=== PATIENT | female | born 1930 | race Hispanic/Latino ===

== ENCOUNTER 2017-06-24 18:52 | Emergency (ER) | payer MEDICARE ==
[~2017-06-24 18:52] MED LIST: LEVO100T4 PO; LISI-613 PO; METO-391 PO; METO-409 PO; RIVA15TA PO
[2017-06-24 19:14] LABS: BASOPHILS % (AUTO) 0.5 % (0.0-5.0); HEMATOCRIT 38.9 % (36-48); LYMPHOCYTES % (AUTO) 24.7 % (21.0-51.0); MEAN CORPUSCULAR HEMOGLOBIN 30.7 pg (27.0-33.0); MEAN CORPUSCULAR HGB CONC 33.2 g/dL (32.0-36.0); MEAN CORPUSCULAR VOLUME 92.5 fL (79-99); MONOCYTES % (AUTO) 12.2 % (3.0-13.0); NEUTROPHILS % (AUTO) 59.6 % (40.0-77.0); PLATELET COUNT (AUTO) 361 K/uL (130-400); RED BLOOD CELL COUNT(AUTO) 4.21 MIL/uL (4.00-5.50); RED CELL DISTRIBUTION WIDTH 15.1 % (11.0-15.5); WHITE BLOOD COUNT (AUTO) 9.9 K/uL (4.8-10.8)
[2017-06-24 19:25] LABS: CARBON DIOXIDE 28 mmol/L (21-32); CHLORIDE 103 mmol/L (101-111); CREATININE 1.4 mg/dL (0.5-1.5); GLOMERULAR FILTR. RATE CALC 38 mL/min (>60); GLUCOSE,RANDOM 112 mg/dL (70-105); POTASSIUM 3.7 mmol/L (3.5-5.1); SODIUM SERUM 142 mmol/L (136-145); UREA NITROGEN, BLOOD 27 mg/dL (7-18)
[2017-06-24 19:27] LABS: INR 1.28 (0.85-1.15); PARTIAL THROMBOPLASTIN TIME 35.1 SEC (26.3-35.5); PROTHROMBIN TIME 13.4 SEC (9.6-11.6)
[2017-06-24 19:30] LABS: ALANINE AMINOTRANSFERASE 15 U/L (12-78); ALBUMIN 3.7 g/dL (3.5-5.0); ASPARTATE AMINOTRANSFERASE 16 U/L (10-37); BILIRUBIN,TOTAL 0.4 mg/dL (0.2-1.0); TOTAL PROTEIN, SERUM 8.6 g/dL (6.0-8.3)
[2017-06-24 19:33] LABS: ALCOHOL, BLOOD < 3 mg/dL (0-10)
[2017-06-24] MEDS ORDERED: ACETAMINOPHEN 325 MG TAB ONE (20:18)
[2017-06-24 20:43] LABS: APPEARANCE,URINE Cloudy (CLEAR); BILIRUBIN,URINE Negative (NEGATIVE); COLOR,URINE Yellow (YELLOW); GLUCOSE, URINE (UA) Negative (NEGATIVE); KETONES,URINE Negative (NEGATIVE); LEUKOCYTE ESTERASE ,URINE Moderate (NEGATIVE); NITRATE,URINE Positive (NEGATIVE); OCCULT BLOOD,URINE Trace (NEGATIVE); PROTEIN,URINE Trace (NEGATIVE)
[2017-06-24 20:51] LABS: AMPHET/METH SCREEN,URINE NEGATIVE (NEGATIVE); BARBITURATE SCREEN, URINE NEGATIVE (NEGATIVE); BENZODIAZEPINES SCREEN,URINE NEGATIVE (NEGATIVE); CANNABINOID SCREEN,URINE NEGATIVE (NEGATIVE); COCAINE SCREEN,URINE NEGATIVE (NEGATIVE); OPIATE SCREEN,URINE NEGATIVE (NEGATIVE); PHENCYCLIDINE SCREEN,URINE NEGATIVE (NEGATIVE)
[2017-06-24 20:52] LABS: BACTERIA,URINE Moderate /HPF (None Seen); RBC,URINE 0-1 /HPF (0-1)
== END 2017-06-24 23:29 | disposition home or self-care (01) ==
LOC: EDH 18:52
DX: S02.2XXA Fracture of nasal bones, initial encounter for closed fracture (principal); S01.511A Laceration without foreign body of lip, initial encounter; S01.512A Laceration without foreign body of oral cavity, initial encounter; S80.02XA Contusion of left knee, initial encounter; I10 Essential (primary) hypertension; I48.91 Unspecified atrial fibrillation; W01.0XXA Fall on same level from slipping, tripping and stumbling without subsequent striking against object, initial encounter; Y93.89 Activity, other specified; Y92.89 Other specified places as the place of occurrence of the external cause; Y99.8 Other external cause status
CPT/HCPCS: 36415; 70450; 70486; 72125; 73110; 73560; 80053; 80305; 81001; 85025; 85610; 85730; 93005; 94761; 99285; G0480; 96372

== ENCOUNTER 2017-07-04 09:38 | Emergency (ER) | payer MEDICARE ==
[2017-07-04] MEDS ORDERED: LIDOCAINE HCL-MPF 1% 2ML VIAL ONE (10:30)
[2017-07-04] MEDS ORDERED: CEFTRIAXONE SODIUM 1 GM ONE (10:30)
== END 2017-07-04 11:45 | disposition home or self-care (01) ==
LOC: EDH 09:38
DX: R60.0 Localized edema (principal)
CPT/HCPCS: 73130; 96372; 99284; J0696; J3490

== ENCOUNTER → 2018-03-16 | Outpatient (CLI) | payer MEDICARE, OTHER | END | disposition home or self-care (01) | LOC: OIH 12:45 | PROVIDERS: ATTEND Internal Medicine | DX: I11.9 Hypertensive heart disease without heart failure (principal) | CPT/HCPCS: 71046 ==

== ENCOUNTER → 2018-04-15 | Outpatient (CLI) | payer MEDICARE, OTHER | END | disposition home or self-care (01) | LOC: OIH 16:30 | PROVIDERS: ATTEND Internal Medicine | DX: R91.8 Other nonspecific abnormal finding of lung field (principal); I11.0 Hypertensive heart disease with heart failure; I50.31 Acute diastolic (congestive) heart failure; M47.815 Spondylosis without myelopathy or radiculopathy, thoracolumbar region | CPT/HCPCS: 71046 ==

== ENCOUNTER 2018-05-18 18:50 | Emergency (ER) | payer MEDICARE ==
[2018-05-18 20:21] LABS: BASOPHILS % (AUTO) 0.9 % (0.0-5.0); EOSINOPHILS % (AUTO) 2.9 % (0.0-8.0); HEMATOCRIT 37.9 % (36-48); LYMPHOCYTES % (AUTO) 27.4 % (21.0-51.0); MEAN CORPUSCULAR HEMOGLOBIN 31.5 pg (27.0-33.0); MEAN CORPUSCULAR HGB CONC 32.8 g/dL (32.0-36.0); MONOCYTES % (AUTO) 15.8 % (3.0-13.0); NUCLEATED RED BLOOD CELLS 0.1 % (0.0-0.19); PLATELET COUNT (AUTO) 295 K/uL (130-400); RED BLOOD CELL COUNT(AUTO) 3.94 MIL/uL (4.00-5.50); RED CELL DISTRIBUTION WIDTH 14.9 % (11.0-15.5); WHITE BLOOD COUNT (AUTO) 5.9 K/uL (4.8-10.8)
[2018-05-18 20:35] LABS: CREATININE 1.1 mg/dL (0.5-1.5); POTASSIUM 3.7 mmol/L (3.5-5.1)
[2018-05-18 20:37] LABS: INR 1.1 (0.85-1.15); PARTIAL THROMBOPLASTIN TIME 32.3 SEC (26.3-35.5); PROTHROMBIN TIME 11.5 SEC (9.6-11.6)
[2018-05-18 20:39] LABS: ALBUMIN 3.5 g/dL (3.5-5.0); BILIRUBIN,TOTAL 0.4 mg/dL (0.2-1.0); TOTAL PROTEIN, SERUM 7.9 g/dL (6.0-8.3)
[2018-05-18] MEDS ORDERED: IBUPROFEN 400 MG TABLET ONE (21:25)
== END 2018-05-18 22:05 | disposition home or self-care (01) ==
LOC: EDH 18:50
DX: R51 Headache (principal); I48.91 Unspecified atrial fibrillation; I10 Essential (primary) hypertension; E07.9 Disorder of thyroid, unspecified; Z79.899 Other long term (current) drug therapy
CPT/HCPCS: 36415; 70450; 80053; 85025; 85610; 85730; 93005

== ENCOUNTER → 2018-06-29 | Outpatient (CLI) | payer MEDICARE | END | disposition home or self-care (01) | LOC: SHCH 15:21 | PROVIDERS: ATTEND Internal Medicine Cardiovascular Disease | DX: I11.0 Hypertensive heart disease with heart failure (principal); I50.32 Chronic diastolic (congestive) heart failure; I48.0 Paroxysmal atrial fibrillation; I48.92 Unspecified atrial flutter; I34.0 Nonrheumatic mitral (valve) insufficiency | CPT/HCPCS: 93306 ==

== ENCOUNTER 2018-07-28 06:13 | Emergency (ER) | payer MEDICARE ==
[2018-07-28 08:10] LABS: BASOPHILS % (AUTO) 0.9 % (0.0-5.0); EOSINOPHILS % (AUTO) 1.1 % (0.0-8.0); HEMATOCRIT 37.6 % (36-48); LYMPHOCYTES % (AUTO) 9.5 % (21.0-51.0); MEAN CORPUSCULAR HEMOGLOBIN 31.7 pg (27.0-33.0); MEAN CORPUSCULAR HGB CONC 33.2 g/dL (32.0-36.0); MEAN CORPUSCULAR VOLUME 95.4 fL (79-99); MONOCYTES % (AUTO) 8.3 % (3.0-13.0); NEUTROPHILS % (AUTO) 80.2 % (40.0-77.0); PLATELET COUNT (AUTO) 319 K/uL (130-400); RED BLOOD CELL COUNT(AUTO) 3.95 MIL/uL (4.00-5.50); RED CELL DISTRIBUTION WIDTH 15.6 % (11.0-15.5); WHITE BLOOD COUNT (AUTO) 9.2 K/uL (4.8-10.8)
[2018-07-28 08:20] LABS: POTASSIUM 3.3 mmol/L (3.5-5.1)
[2018-07-28 08:28] LABS: ALBUMIN 3.7 g/dL (3.5-5.0); BILIRUBIN,TOTAL 0.8 mg/dL (0.2-1.0); TOTAL PROTEIN, SERUM 8.7 g/dL (6.0-8.3)
== END 2018-07-28 09:59 | disposition home or self-care (01) ==
LOC: EDH 06:13
DX: R51 Headache (principal); I48.91 Unspecified atrial fibrillation; I10 Essential (primary) hypertension; E07.9 Disorder of thyroid, unspecified; G51.0 Bell's palsy; Z79.899 Other long term (current) drug therapy
CPT/HCPCS: 36415; 70450; 80053; 85025

== ENCOUNTER 2018-08-07 04:39 | Emergency (ER) | payer MEDICARE ==
[2018-08-07 05:25] LABS: BASOPHILS % (AUTO) 0.5 % (0.0-5.0); EOSINOPHILS % (AUTO) 2.4 % (0.0-8.0); HEMATOCRIT 38.8 % (36-48); LYMPHOCYTES % (AUTO) 10.1 % (21.0-51.0); MEAN CORPUSCULAR HGB CONC 33.5 g/dL (32.0-36.0); MEAN CORPUSCULAR VOLUME 95.7 fL (79-99); MONOCYTES % (AUTO) 9.1 % (3.0-13.0); NEUTROPHILS % (AUTO) 77.9 % (40.0-77.0); PLATELET COUNT (AUTO) 308 K/uL (130-400); RED BLOOD CELL COUNT(AUTO) 4.05 MIL/uL (4.00-5.50); RED CELL DISTRIBUTION WIDTH 15.8 % (11.0-15.5); WHITE BLOOD COUNT (AUTO) 11.4 K/uL (4.8-10.8)
[2018-08-07] MEDS ORDERED: FUROSEMIDE 10 MG/ML 4ML VIAL ONE (05:33)
[2018-08-07 05:42] LABS: B-TYPE NATRIURETIC PEPTIDE 769 pg/mL (0-100)
[2018-08-07 05:46] LABS: POTASSIUM 3.3 mmol/L (3.5-5.1)
[2018-08-07 05:50] LABS: ALBUMIN 3.8 g/dL (3.5-5.0); BILIRUBIN,TOTAL 0.7 mg/dL (0.2-1.0); TOTAL PROTEIN, SERUM 8.5 g/dL (6.0-8.3)
[2018-08-07] MEDS ORDERED: POTASSIUM CHLORIDE 20 MEQ ERTAB PO ONE (06:13)
[2018-08-07 07:10] LABS: APPEARANCE,URINE Clear (CLEAR); BILIRUBIN,URINE Negative (NEGATIVE); COLOR,URINE Yellow (YELLOW); GLUCOSE, URINE (UA) Negative (NEGATIVE); KETONES,URINE Negative (NEGATIVE); LEUKOCYTE ESTERASE ,URINE Large (NEGATIVE); NITRATE,URINE Positive (NEGATIVE); OCCULT BLOOD,URINE Moderate (NEGATIVE); PH,URINE 7.5 (5.0-8.0); PROTEIN,URINE Negative (NEGATIVE)
[2018-08-07 07:56] LABS: BACTERIA,URINE Many /HPF (None Seen); SQUAMOUS EPITHELIAL CELL,UR Few /HPF (0-2); WBC,URINE 26-50 /HPF (0-1)
== END 2018-08-07 08:06 | disposition home or self-care (01) ==
LOC: EDH 04:39
DX: I11.0 Hypertensive heart disease with heart failure (principal); I50.23 Acute on chronic systolic (congestive) heart failure; E87.6 Hypokalemia; R06.00 Dyspnea, unspecified; I48.91 Unspecified atrial fibrillation; G51.0 Bell's palsy; Z79.899 Other long term (current) drug therapy
CPT/HCPCS: 36415; 71046; 80053; 81001; 82550; 83735; 83880; 84484 ×2; 85025; 87077; 87088; 87186; 93005 ×2; 96374; 99285; J1940

== ENCOUNTER 2018-08-24 06:21 | Emergency (ER) | payer MEDICARE ==
[2018-08-24] MEDS ORDERED: HYDROCODONE/ACETAMINOPHEN 10/325 MG TAB ONE (07:36)
[2018-08-24 07:57] LABS: BASOPHILS % (AUTO) 0.7 % (0.0-5.0); EOSINOPHILS % (AUTO) 2.6 % (0.0-8.0); HEMATOCRIT 37.5 % (36-48); LYMPHOCYTES % (AUTO) 8.5 % (21.0-51.0); MEAN CORPUSCULAR HEMOGLOBIN 32.6 pg (27.0-33.0); MEAN CORPUSCULAR VOLUME 95.9 fL (79-99); MONOCYTES % (AUTO) 9.9 % (3.0-13.0); NEUTROPHILS % (AUTO) 78.3 % (40.0-77.0); PLATELET COUNT (AUTO) 321 K/uL (130-400); RED BLOOD CELL COUNT(AUTO) 3.91 MIL/uL (4.00-5.50); RED CELL DISTRIBUTION WIDTH 15.4 % (11.0-15.5); WHITE BLOOD COUNT (AUTO) 8.6 K/uL (4.8-10.8)
[2018-08-24 08:02] LABS: CREATININE 1.1 mg/dL (0.5-1.5); CRP QUANTITATIVE 35.6 mg/L (0.00-9.0); POTASSIUM 3.4 mmol/L (3.5-5.1)
== END 2018-08-24 09:20 | disposition home or self-care (01) ==
LOC: EDH 06:21
DX: R21 Rash and other nonspecific skin eruption (principal); I48.91 Unspecified atrial fibrillation; I10 Essential (primary) hypertension; E07.9 Disorder of thyroid, unspecified
CPT/HCPCS: 36415; 80048; 85025; 86140

== ENCOUNTER 2019-03-27 05:52 | Observation (INO) | payer MEDICARE ==
[~2019-03-27] VITALS: Ht 160 cm; Wt 81.1 kg
[2019-03-27] MEDS ORDERED: CEFTRIAXONE SODIUM 1 GM ONE (06:08)
[2019-03-27] MEDS ORDERED: SODIUM CHLORIDE 0.9% 1000ML 2,000 ML IV ONE (06:08)
[2019-03-27] MEDS ORDERED: ACETAMINOPHEN 325 MG TAB ONE (06:08)
[2019-03-27 06:50] LABS: BASOPHILS % (AUTO) 1.1 % (0.0-5.0); EOSINOPHILS % (AUTO) 0.2 % (0.0-8.0); HEMATOCRIT 38.2 % (36-48); LYMPHOCYTES % (AUTO) 3.5 % (21.0-51.0); MEAN CORPUSCULAR HEMOGLOBIN 32.9 pg (27.0-33.0); MEAN CORPUSCULAR HGB CONC 33.7 g/dL (32.0-36.0); MEAN CORPUSCULAR VOLUME 97.5 fL (79-99); NEUTROPHILS % (AUTO) 82.2 % (40.0-77.0); PLATELET COUNT (AUTO) 234 K/uL (130-400); RED BLOOD CELL COUNT(AUTO) 3.92 MIL/uL (4.00-5.50); RED CELL DISTRIBUTION WIDTH 14.5 % (11.0-15.5); WHITE BLOOD COUNT (AUTO) 9.4 K/uL (4.8-10.8)
[2019-03-27 06:56] LABS: APPEARANCE,URINE CLOUDY (CLEAR); BILIRUBIN,URINE SMALL (NEGATIVE); COLOR,URINE YELLOW (YELLOW); GLUCOSE, URINE (UA) NEGATIVE (NEGATIVE); KETONES,URINE NEGATIVE (NEGATIVE); LEUKOCYTE ESTERASE ,URINE MODERATE (NEGATIVE); NITRATE,URINE NEGATIVE (NEGATIVE); OCCULT BLOOD,URINE MODERATE (NEGATIVE); PROTEIN,URINE 100 mg/dL (NEGATIVE)
[2019-03-27 07:07] LABS: INR 1.12 (0.85-1.15); PARTIAL THROMBOPLASTIN TIME 30.3 SEC (26.3-35.5); PROTHROMBIN TIME 11.7 SEC (9.6-11.6)
[2019-03-27 07:16] LABS: CREATININE 1.2 mg/dL (0.5-1.5); POTASSIUM 3.7 mmol/L (3.5-5.1)
[2019-03-27 07:22] LABS: ALBUMIN 3.2 g/dL (3.5-5.0); TOTAL PROTEIN, SERUM 7.7 g/dL (6.0-8.3)
[2019-03-27 07:36] LABS: BACTERIA,URINE Many /HPF (None Seen); SQUAMOUS EPITHELIAL CELL,UR Rare /HPF (0-2); WBC,URINE 51-100 /HPF (0-1)
[2019-03-27] MEDS: CEFTRIAXONE SODIUM 1 GM IVP SCH (09:00)
[2019-03-27] MEDS ORDERED: LEVOFLOXACIN 750 MG/D5W 150 ML 150 ML IV SCH (09:00)
[2019-03-27 09:20] VITALS: BP 154/77
[2019-03-27] MEDS ORDERED: SODIUM CHLORIDE 0.9% 10 ML VIAL IVP PRN (09:45)
[2019-03-27] MEDS ORDERED: DILTIAZEM HCL 60 MG TABLET PO SCH (09:45)
[2019-03-27] MEDS ORDERED: DILT180C51 PO (10:57)
[2019-03-27] MEDS ORDERED: LISI-613 PO (10:57)
[2019-03-27] MEDS ORDERED: METO100T14 PO (10:57)
[2019-03-27 11:57] VITALS: BP 160/70
[2019-03-27] MEDS: 1/2 NORMAL SALINE 1,000 ML IV SCH ×2 (12:17→17:03)
[2019-03-27] MEDS: LEVOFLOXACIN 750 MG/D5W 150 ML 150 ML IV SCH (12:17)
[2019-03-27 16:00] VITALS: BP 162/73
[2019-03-27 20:00] VITALS: BP 152/83
[2019-03-27] MEDS: LISINOPRIL 20 MG TABLET PO SCH (20:15)
[2019-03-27] MEDS: METOPROLOL TARTRATE 50 MG TAB PO SCH (20:17)
[2019-03-27] MEDS: DILTIAZEM HCL 60 MG TABLET PO SCH (20:19)
[2019-03-28] VITALS (7 sets, daily range): BP systolic 138–157; BP diastolic 62–88
[2019-03-28 05:45] LABS: HEMATOCRIT 37.3 % (36-48); MEAN CORPUSCULAR HEMOGLOBIN 32.3 pg (27.0-33.0); MEAN CORPUSCULAR HGB CONC 33.6 g/dL (32.0-36.0); MEAN CORPUSCULAR VOLUME 96.1 fL (79-99); PLATELET COUNT (AUTO) 236 K/uL (130-400); RED BLOOD CELL COUNT(AUTO) 3.89 MIL/uL (4.00-5.50); RED CELL DISTRIBUTION WIDTH 14.4 % (11.0-15.5); WHITE BLOOD COUNT (AUTO) 8.9 K/uL (4.8-10.8)
[2019-03-28 06:02] LABS: POTASSIUM 2.9 mmol/L (3.5-5.1)
--- NOTE | 2019-03-28 06:10 | NUR ---
MD ROUNDS DR. PLEITEZ HERE, WENT IN TO SEE PATIENT. NOTIFIED OF TEMPERATURES DURING [employer] AND SHOWED HIM LAB REPORTS FOR THIS MORNING. PATIENT IS TO STAY ONE MORE DAY DUE FEVERS AND WILL BE STARTED ON POTASSIUM REPLACEMENT PROTOCOL. TYLENOL FOR FEVER OR PAINS.
[2019-03-28] MEDS ORDERED: ACETAMINOPHEN 325 MG TAB PO PRN ×2 (06:15)
[2019-03-28] MEDS ORDERED: LIDOCAINE HCL-MPF 1% 2ML VIAL IV PRN (06:15)
[2019-03-28] MEDS ORDERED: POTASSIUM CHLORIDE 20 MEQ ERTAB PO PRN (06:15)
--- NOTE | 2019-03-28 06:29 | NUR ---
NOTE PATIENT'S DAUGHTER HERE. UPDATED HER ON STATUS AND ON PLAN UPDATES.
[2019-03-28] MEDS: LEVOTHYROXINE 100 MCG TABLET PO SCH (06:44)
[2019-03-28] MEDS: DILTIAZEM HCL 180 MG CAP.SR.24H PO SCH (09:00)
[2019-03-28] MEDS: CEFTRIAXONE SODIUM 1 GM IVP SCH (10:18)
[2019-03-28] MEDS: METOPROLOL TARTRATE 50 MG TAB PO SCH ×2 (10:19→21:42)
[2019-03-28] MEDS: RIVAROXABAN 15 MG TABLET PO SCH (10:20)
[2019-03-28] MEDS: DILTIAZEM HCL 60 MG TABLET PO SCH ×2 (10:20→21:42)
[2019-03-28] MEDS: LISINOPRIL 20 MG TABLET PO SCH ×2 (10:20→21:43)
--- NOTE | 2019-03-28 11:40 | NUR ---
DCP CM met with pt discussed dc plans. Pt is independent prior to admission, lives at home with daughter. Denies any equipments/services. Feels safe to go back home, daughter able to assist with transportation and needs as necessary. DC plan to home once stable. CM to con to follow up. Addendum: 03/28/19 at 1141 by JUNIOR ZHANG LVN CM Amended: Links added.
--- NOTE | 2019-03-28 11:42 | NUR ---
CM Note: Called Dr Salazar CM called Dr Salazar left voicemail. Pt met IPMM criteria re: UTI, K2,9. Pending MD to call back. CM to cont to follow up.
[2019-03-28] MEDS: POTASSIUM CHLORIDE 20MEQ/100ML 100 ML IV PRN ×2 (18:04→19:26)
[2019-03-28] MEDS ORDERED: MAGNESIUM 2GM PREMIX 50ML 50 ML IV PRN (18:30)
--- NOTE | 2019-03-28 19:06 | NUR ---
OKAY TO CHECK MAG AND K AND MAG PROTOCOL.
[2019-03-28 20:53] LABS: MAGNESIUM 1.6 mg/dL (1.80-2.40)
[2019-03-28 20:58] LABS: POTASSIUM 2.9 mmol/L (3.5-5.1)
[2019-03-29 03:00] VITALS: BP 120/63
[2019-03-29 06:19] LABS: MAGNESIUM 2.4 mg/dL (1.80-2.40); POTASSIUM 3.2 mmol/L (3.5-5.1)
[2019-03-29] MEDS: LEVOTHYROXINE 100 MCG TABLET PO SCH (07:53)
[2019-03-29] MEDS: POTASSIUM CHLORIDE 20MEQ/100ML 100 ML IV PRN (07:54)
[2019-03-29 07:57] VITALS: BP 138/51
[2019-03-29] MEDS: CEFTRIAXONE SODIUM 1 GM IVP SCH (08:05)
[2019-03-29] MEDS: DILTIAZEM HCL 60 MG TABLET PO SCH (08:06)
[2019-03-29] MEDS: RIVAROXABAN 15 MG TABLET PO SCH (08:07)
[2019-03-29] MEDS: LISINOPRIL 20 MG TABLET PO SCH (08:07)
[2019-03-29] MEDS: METOPROLOL TARTRATE 50 MG TAB PO SCH (08:07)
[2019-03-29] MEDS: DILTIAZEM HCL 180 MG CAP.SR.24H PO SCH (09:00)
[2019-03-29 11:07] VITALS: BP 103/49
[2019-03-29] MEDS: POTASSIUM CHLORIDE 10% ELIXIR 20 MEQ/15 ML UDCUP PO PRN ×2 (12:38→15:57)
[2019-03-29] MEDS: LEVOFLOXACIN 750 MG/D5W 150 ML 150 ML IV SCH (15:19)
[2019-03-29 16:14] VITALS: BP 130/67
--- NOTE | 2019-03-29 18:00 | NUR ---
DISCHARGE SUMMARY REVIEW WITH PT REGARDING COMPLETION OF ANTIBOTICS . AND FOLLOW WITH . DR. PLEITEZ IN 2-3 DAYS
== END 2019-03-29 18:00 | disposition home or self-care (01) ==
LOC: EDH 05:52 → EDHIP 07:45 → 3BH 09:00
PROVIDERS: ADMIT Internal Medicine; ATTEND Internal Medicine
DX: N10 Acute pyelonephritis (principal); N39.0 Urinary tract infection, site not specified; I48.91 Unspecified atrial fibrillation; I12.9 Hypertensive chronic kidney disease with stage 1 through stage 4 chronic kidney disease, or unspecified chronic kidney disease; E11.22 Type 2 diabetes mellitus with diabetic chronic kidney disease; N18.3 Chronic kidney disease, stage 3 (moderate); G51.0 Bell's palsy; Z79.01 Long term (current) use of anticoagulants; Z79.899 Other long term (current) drug therapy
CPT/HCPCS: 36415 ×3; 71045; 80048; 80053; 81001; 82948 ×10; 83605; 83735 ×2; 83880; 84132 ×3; 84145; 85025; 85027; 85610; 85730; 87040 ×2; 87077; 87088; 87186; 87804 ×2; 93005; 96365; 96366 ×2; 96367; 96375 ×2; 96376; 99291; G0378 ×56; J0696 ×3; J1956 ×3; J3475; J3480 ×2; J3490 ×2; J7030

== ENCOUNTER 2020-02-17 00:43 | Emergency (ER) | payer MEDICARE ==
[~2020-02-17 00:43] MED LIST changes: +DILT180C51 PO; -METO-391 PO; -METO-409 PO; +METO100T14 PO
[2020-02-17 01:19] LABS: BASOPHILS % (AUTO) 0.2 % (0.0-5.0); EOSINOPHILS % (AUTO) 0.9 % (0.0-8.0); HEMATOCRIT 39.2 % (36-48); LYMPHOCYTES % (AUTO) 8.2 % (21.0-51.0); MEAN CORPUSCULAR HEMOGLOBIN 31.7 pg (27.0-33.0); MEAN CORPUSCULAR HGB CONC 32.1 g/dL (32.0-36.0); MEAN CORPUSCULAR VOLUME 98.5 fL (79-99); MONOCYTES % (AUTO) 8.3 % (3.0-13.0); NEUTROPHILS % (AUTO) 82.1 % (40.0-77.0); PLATELET COUNT (AUTO) 335 K/uL (130-400); RED BLOOD CELL COUNT(AUTO) 3.98 MIL/uL (4.00-5.50); RED CELL DISTRIBUTION WIDTH 14.7 % (11.0-15.5); WHITE BLOOD COUNT (AUTO) 13.3 K/uL (4.8-10.8)
[2020-02-17 01:37] LABS: ALBUMIN 3.6 g/dL (3.5-5.0); BILIRUBIN,TOTAL 0.8 mg/dL (0.2-1.0); CREATININE 1.5 mg/dL (0.5-1.5); POTASSIUM 4.5 mmol/L (3.5-5.1); TOTAL PROTEIN, SERUM 9.6 g/dL (6.0-8.3)
[2020-02-17 01:50] LABS: B-TYPE NATRIURETIC PEPTIDE 2070 pg/mL (0-100)
[2020-02-17] MEDS ORDERED: LORAZEPAM 0.5 MG TABLET ONE (02:47)
== END 2020-02-17 03:07 | disposition home or self-care (01) ==
LOC: EDH 00:43
DX: G47.00 Insomnia, unspecified (principal); I48.20 Chronic atrial fibrillation, unspecified; I11.0 Hypertensive heart disease with heart failure; I50.9 Heart failure, unspecified; Z79.899 Other long term (current) drug therapy
CPT/HCPCS: 36415; 71045; 80053; 83880; 84484; 85025; 93005

== ENCOUNTER 2020-02-24 00:53 | Observation (INO) | payer MEDICARE ==
[~2020-02-24] VITALS: Ht 160 cm; Wt 74.0 kg
[2020-02-24] MEDS ORDERED: FUROSEMIDE 10 MG/ML 4ML VIAL ONE ×2 (01:25→10:09)
[2020-02-24] MEDS ORDERED: NITROGLYCERIN 1GM/1 INCH PACKET TD ONE (01:25)
[2020-02-24 01:27] LABS: BASOPHILS % (AUTO) 0.2 % (0.0-5.0); EOSINOPHILS % (AUTO) 2.2 % (0.0-8.0); HEMATOCRIT 39.2 % (36-48); LYMPHOCYTES % (AUTO) 13.3 % (21.0-51.0); MEAN CORPUSCULAR HEMOGLOBIN 31.8 pg (27.0-33.0); MEAN CORPUSCULAR HGB CONC 32.7 g/dL (32.0-36.0); MEAN CORPUSCULAR VOLUME 97.5 fL (79-99); MONOCYTES % (AUTO) 8.6 % (3.0-13.0); NEUTROPHILS % (AUTO) 75.2 % (40.0-77.0); PLATELET COUNT (AUTO) 348 K/uL (130-400); RED BLOOD CELL COUNT(AUTO) 4.02 MIL/uL (4.00-5.50); RED CELL DISTRIBUTION WIDTH 15.4 % (11.0-15.5); WHITE BLOOD COUNT (AUTO) 10.2 K/uL (4.8-10.8)
[2020-02-24 01:37] LABS: CREATININE 1.4 mg/dL (0.5-1.5); POTASSIUM 3.5 mmol/L (3.5-5.1)
[2020-02-24 01:41] LABS: ALBUMIN 3.5 g/dL (3.5-5.0); BILIRUBIN,TOTAL 0.9 mg/dL (0.2-1.0); TOTAL PROTEIN, SERUM 8.2 g/dL (6.0-8.3)
[2020-02-24 01:53] LABS: B-TYPE NATRIURETIC PEPTIDE 1740 pg/mL (0-100)
[2020-02-24 02:15] LABS: INR 1.22 (0.85-1.15); PARTIAL THROMBOPLASTIN TIME 32.3 SEC (26.3-35.5); PROTHROMBIN TIME 13.1 SEC (9.6-11.6)
[2020-02-24] MEDS ORDERED: METOPROLOL TARTRATE 50 MG TAB ONE (10:08)
[2020-02-24] MEDS ORDERED: LEVOTHYROXINE 100 MCG TABLET ONE (10:08)
[2020-02-24] MEDS: METOPROLOL TARTRATE 50 MG TAB PO SCH ×2 (10:13→21:00)
[2020-02-24] MEDS ORDERED: LISINOPRIL 20 MG TABLET PO SCH (10:16)
[2020-02-24] MEDS: DILTIAZEM HCL 180 MG CAP.SR.24H PO SCH (10:16)
[2020-02-24] MEDS: LEVOTHYROXINE 100 MCG TABLET PO SCH (10:16)
[2020-02-24] MEDS: RIVAROXABAN 15 MG TABLET PO SCH (10:16)
[2020-02-24] MEDS ORDERED: LISINOPRIL 40 MG TABLET PO SCH (10:27)
[2020-02-24] MEDS: FUROSEMIDE 10 MG/ML 4ML VIAL IVP SCH ×2 (14:00→22:39)
[2020-02-24 15:45] VITALS: BP 144/70
[2020-02-24 20:12] VITALS: BP 132/70
[2020-02-24] MEDS ORDERED: NON-FORMULARY MEDICATION 1 EACH (Metoprolol Tartrate 100 MG) PO SCH (21:00)
[2020-02-24] MEDS: LISINOPRIL 20 MG TABLET PO SCH (22:38)
[2020-02-25] VITALS (7 sets, daily range): BP systolic 134–162; BP diastolic 49–82
[2020-02-25] MEDS: FUROSEMIDE 10 MG/ML 4ML VIAL IVP SCH ×3 (05:26→20:34)
[2020-02-25] MEDS: LEVOTHYROXINE 100 MCG TABLET PO SCH (05:27)
[2020-02-25 06:01] LABS: BASOPHILS % (AUTO) 0.4 % (0.0-5.0); EOSINOPHILS % (AUTO) 3.7 % (0.0-8.0); HEMATOCRIT 35.5 % (36-48); LYMPHOCYTES % (AUTO) 15.4 % (21.0-51.0); MEAN CORPUSCULAR HEMOGLOBIN 31.2 pg (27.0-33.0); MEAN CORPUSCULAR HGB CONC 32.7 g/dL (32.0-36.0); MEAN CORPUSCULAR VOLUME 95.4 fL (79-99); MONOCYTES % (AUTO) 12.4 % (3.0-13.0); NEUTROPHILS % (AUTO) 67.7 % (40.0-77.0); PLATELET COUNT (AUTO) 312 K/uL (130-400); RED BLOOD CELL COUNT(AUTO) 3.72 MIL/uL (4.00-5.50); RED CELL DISTRIBUTION WIDTH 15.1 % (11.0-15.5); WHITE BLOOD COUNT (AUTO) 7.8 K/uL (4.8-10.8)
[2020-02-25 06:15] LABS: CREATININE 1.2 mg/dL (0.5-1.5)
[2020-02-25 06:24] LABS: POTASSIUM 2.8 mmol/L (3.5-5.1)
[2020-02-25] MEDS ORDERED: LEVOTHYROXINE 100 MCG TABLET PO SCH (06:30)
--- NOTE | 2020-02-25 06:34 | NUR ---
CRITICAL LAB VALUE POTASSIUM 2.8. PAGED DR. GONZALEZ PER ORTHOPEDIC NURSE LOG SHEET. NO ANSWER. PENDING CALL BACK.
--- NOTE | 2020-02-25 06:49 | NUR ---
MANAGER COSTING PAGED [phone] CALLED AND PAGED CARLOS TO REPORT K+ LEVEL. PENDING CALL BACK.
--- NOTE | 2020-02-25 08:31 | NUR ---
Per election clerk sheet, Dr. Clay election clerk. Message sent to report critical result of 2.8, no replacement protocol ordered. Rec'd orders for potassium 40 meq po x 1 now, repeat in 4 hours, then 20 daily x 3 days. Orders entered.
[2020-02-25] MEDS ORDERED: POTASSIUM CHLORIDE 20 MEQ ERTAB PO SCH (08:45)
[2020-02-25] MEDS ORDERED: RIVAROXABAN 15 MG TABLET PO SCH (09:00)
[2020-02-25] MEDS ORDERED: DILTIAZEM HCL 180 MG CAP.SR.24H PO SCH (09:00)
[2020-02-25] MEDS ORDERED: LISINOPRIL 20 MG TABLET PO SCH (09:00)
[2020-02-25] MEDS: DILTIAZEM HCL 180 MG CAP.SR.24H PO SCH (09:33)
[2020-02-25] MEDS: LISINOPRIL 20 MG TABLET PO SCH ×2 (09:33→20:28)
[2020-02-25] MEDS: RIVAROXABAN 15 MG TABLET PO SCH (09:33)
[2020-02-25] MEDS: METOPROLOL TARTRATE 50 MG TAB PO SCH ×2 (09:33→20:29)
[2020-02-25] MEDS ORDERED: POTASSIUM CHLORIDE 20 MEQ ERTAB PO ONE (13:00)
--- NOTE | 2020-02-25 17:04 | NUR ---
[facility] CM met with pt and daughter in room discussed dc plans. Pt is independent prior to admission, daughter stays with patient 10/11 at home. Pt has a walker, shower chair, oxygen equipments. Denies any other equipments/services. Feels safe to go back home, still drives, daughter able to assist with transportation and needs as necessary. Pt declined placement at this time, prefer to go back home as pt verbalized her daughter stays with her at all times. DC plan to home once stable. CM to continue to follow up. Addendum: 02/25/20 at 1706 by JUNIOR ZHANG LVN CM Amended: Links added.
[2020-02-26 04:00] VITALS: BP 144/47
[2020-02-26 05:47] LABS: HEMATOCRIT 38.4 % (36-48); MEAN CORPUSCULAR HEMOGLOBIN 31.5 pg (27.0-33.0); MEAN CORPUSCULAR HGB CONC 33.1 g/dL (32.0-36.0); MEAN CORPUSCULAR VOLUME 95.3 fL (79-99); RED BLOOD CELL COUNT(AUTO) 4.03 MIL/uL (4.00-5.50); RED CELL DISTRIBUTION WIDTH 15.2 % (11.0-15.5); WHITE BLOOD COUNT (AUTO) 10.7 K/uL (4.8-10.8)
[2020-02-26] MEDS: FUROSEMIDE 10 MG/ML 4ML VIAL IVP SCH (05:58)
[2020-02-26] MEDS: LEVOTHYROXINE 100 MCG TABLET PO SCH (05:58)
[2020-02-26 06:02] LABS: CREATININE 1.3 mg/dL (0.5-1.5)
[2020-02-26 06:32] LABS: POTASSIUM 2.7 mmol/L (3.5-5.1)
[2020-02-26 08:00] VITALS: BP 154/55
[2020-02-26] MEDS: DILTIAZEM HCL 180 MG CAP.SR.24H PO SCH (08:42)
[2020-02-26] MEDS: RIVAROXABAN 15 MG TABLET PO SCH (08:42)
[2020-02-26] MEDS: LISINOPRIL 20 MG TABLET PO SCH ×2 (08:42→20:35)
[2020-02-26] MEDS: METOPROLOL TARTRATE 50 MG TAB PO SCH ×2 (08:42→20:35)
[2020-02-26] MEDS ORDERED: POTASSIUM CHLORIDE 20 MEQ ERTAB PO SCH ×2 (09:00→15:30)
[2020-02-26 11:00] VITALS: BP 157/62
[2020-02-26] MEDS: MAGNESIUM OXIDE 400 MG TABLET PO SCH ×2 (12:15→20:34)
--- NOTE | 2020-02-26 13:20 | NUR ---
CM NOTE CM attempted to contact Dr. Clay in regards to order clarification. Pending response.
[2020-02-26] MEDS ORDERED: ISOSORBIDE MONO 30MG TAB SR PO SCH (15:30)
[2020-02-26] MEDS ORDERED: SPIRONOLACTONE 25 MG TAB PO SCH (15:30)
[2020-02-26 16:00] VITALS: BP 162/76
[2020-02-26] MEDS ORDERED: POTASSIUM CHLORIDE 10% ELIXIR 20 MEQ/15 ML UDCUP ONE (16:04)
--- NOTE | 2020-02-26 17:00 | NUR ---
CM NOTE No response from Dr. Clay in regards to status clarification. CM director aware.
[2020-02-26 20:00] VITALS: BP 142/55
[2020-02-26] MEDS: HYDRALAZINE HCL 25 MG TABLET PO SCH (20:33)
[2020-02-26] MEDS: FUROSEMIDE 20 MG TABLET PO SCH (20:34)
[2020-02-26] MEDS ORDERED: FUROSEMIDE 10 MG/ML 4ML VIAL IVP SCH (21:00)
[2020-02-27] VITALS: BP 138/51
[2020-02-27 03:57] VITALS: BP 132/52
[2020-02-27 04:30] LABS: HEMATOCRIT 35.7 % (36-48); MEAN CORPUSCULAR HEMOGLOBIN 31.8 pg (27.0-33.0); MEAN CORPUSCULAR HGB CONC 33.1 g/dL (32.0-36.0); MEAN CORPUSCULAR VOLUME 96.2 fL (79-99); RED BLOOD CELL COUNT(AUTO) 3.71 MIL/uL (4.00-5.50); RED CELL DISTRIBUTION WIDTH 15.5 % (11.0-15.5); WHITE BLOOD COUNT (AUTO) 8.7 K/uL (4.8-10.8)
[2020-02-27 04:48] LABS: BILIRUBIN,TOTAL 1.2 mg/dL (0.2-1.0); CREATININE 1.5 mg/dL (0.5-1.5); TOTAL PROTEIN, SERUM 7.3 g/dL (6.0-8.3)
[2020-02-27] MEDS: LEVOTHYROXINE 100 MCG TABLET PO SCH (06:07)
[2020-02-27 07:52] VITALS: BP 147/54
[2020-02-27] MEDS ORDERED: ISOSORBIDE MONO 30MG TAB SR PO SCH (09:00)
[2020-02-27] MEDS ORDERED: POTASSIUM CHLORIDE 20 MEQ ERTAB PO SCH (09:00)
[2020-02-27] MEDS ORDERED: SPIRONOLACTONE 25 MG TAB PO SCH (09:00)
[2020-02-27] MEDS ORDERED: METOPROLOL SUCCINATE 50 MG TAB.SR.24H PO SCH (09:00)
[2020-02-27] MEDS: LISINOPRIL 20 MG TABLET PO SCH (10:47)
[2020-02-27] MEDS: MAGNESIUM OXIDE 400 MG TABLET PO SCH (10:47)
[2020-02-27] MEDS: RIVAROXABAN 15 MG TABLET PO SCH (10:47)
[2020-02-27] MEDS: FUROSEMIDE 20 MG TABLET PO SCH (10:47)
[2020-02-27] MEDS: HYDRALAZINE HCL 25 MG TABLET PO SCH (10:48)
[2020-02-27 11:24] VITALS: BP 142/49
[2020-02-27 17:05] VITALS: BP 147/62
--- NOTE | 2020-02-27 19:40 | NUR ---
Patient was discharged on 02/27/2020 at 1940. The patient was educated on congestive heart failure, when to follow up with Dr. Harrison, when to follow up with Dr. Salazar, and to go do a BMP at [facility] on the 12. The patient nor the daughter of the patient had any further questions regarding discharge instruction. The IV was intact and removed.
[2020-02-28] MEDS ORDERED: AMLODIPINE BESYLATE 2.5 MG TAB PO SCH (09:00)
[2020-02-28] MEDS ORDERED: METOPROLOL SUCCINATE 50 MG TAB.SR.24H PO SCH ×3 (09:00→21:00)
== END 2020-02-27 19:35 | disposition home or self-care (01) ==
LOC: EDH 00:53 → EDHIP 02:54 → 3BH 14:41
PROVIDERS: ADMIT Internal Medicine; ATTEND Internal Medicine
DX: I13.0 Hypertensive heart and chronic kidney disease with heart failure and stage 1 through stage 4 chronic kidney disease, or unspecified chronic kidney disease (principal); I50.23 Acute on chronic systolic (congestive) heart failure; N18.30 Chronic kidney disease, stage 3 unspecified; I08.3 Combined rheumatic disorders of mitral, aortic and tricuspid valves; I48.0 Paroxysmal atrial fibrillation; I48.20 Chronic atrial fibrillation, unspecified; G51.0 Bell's palsy; I87.2 Venous insufficiency (chronic) (peripheral); E03.9 Hypothyroidism, unspecified; R41.81 Age-related cognitive decline; E87.6 Hypokalemia; E78.5 Hyperlipidemia, unspecified; R42 Dizziness and giddiness; Z98.41 Cataract extraction status, right eye; Z98.42 Cataract extraction status, left eye; Z79.01 Long term (current) use of anticoagulants; Z79.899 Other long term (current) drug therapy
CPT/HCPCS: 36415 ×4; 71045; 80048 ×2; 80053 ×2; 82550; 83880; 84132; 84484; 85025 ×2; 85027 ×2; 85610; 85730; 93005; 93306; 93356; 96374; 96376 ×2; 99285; G0378 ×23; J1940 ×7

== ENCOUNTER 2020-03-10 04:42 | Observation (INO) | payer MEDICARE ==
[~2020-03-10] VITALS: Ht 160 cm; Wt 76.9 kg
[2020-03-10] MEDS ORDERED: FUROSEMIDE 10 MG/ML 4ML VIAL ONE (05:32)
[2020-03-10 05:36] LABS: BASOPHILS % (AUTO) 0.3 % (0.0-5.0); EOSINOPHILS % (AUTO) 0.8 % (0.0-8.0); HEMATOCRIT 35.3 % (36-48); LYMPHOCYTES % (AUTO) 8.4 % (21.0-51.0); MEAN CORPUSCULAR HEMOGLOBIN 31.6 pg (27.0-33.0); MEAN CORPUSCULAR HGB CONC 32.6 g/dL (32.0-36.0); NEUTROPHILS % (AUTO) 80.2 % (40.0-77.0); PLATELET COUNT (AUTO) 282 K/uL (130-400); RED BLOOD CELL COUNT(AUTO) 3.64 MIL/uL (4.00-5.50); RED CELL DISTRIBUTION WIDTH 15.8 % (11.0-15.5); WHITE BLOOD COUNT (AUTO) 9.9 K/uL (4.8-10.8)
[2020-03-10 05:49] LABS: CREATININE 1.2 mg/dL (0.5-1.5); INR 1.21 (0.85-1.15); PARTIAL THROMBOPLASTIN TIME 30.9 SEC (26.3-35.5); POTASSIUM 3.6 mmol/L (3.5-5.1)
[2020-03-10 05:53] LABS: ALBUMIN 3.2 g/dL (3.5-5.0); TOTAL PROTEIN, SERUM 7.5 g/dL (6.0-8.3)
[2020-03-10 05:54] LABS: B-TYPE NATRIURETIC PEPTIDE 1490 pg/mL (0-100)
[2020-03-10 06:14] LABS: APPEARANCE,URINE Clear (CLEAR); BILIRUBIN,URINE Negative (NEGATIVE); COLOR,URINE Yellow (YELLOW); GLUCOSE, URINE (UA) Negative (NEGATIVE); KETONES,URINE Negative (NEGATIVE); LEUKOCYTE ESTERASE ,URINE Trace (NEGATIVE); NITRATE,URINE Negative (NEGATIVE); OCCULT BLOOD,URINE Negative (NEGATIVE); PROTEIN,URINE Negative (NEGATIVE)
[2020-03-10 06:21] LABS: BACTERIA,URINE Few /HPF (None Seen); RBC,URINE 0-1 /HPF (0-1); SQUAMOUS EPITHELIAL CELL,UR 0-2 /HPF (0-2)
[2020-03-10 08:25] VITALS: BP 155/65
[2020-03-10] MEDS ORDERED: SACU1TAB7 PO (08:54)
[2020-03-10] MEDS ORDERED: POTA20TA82 PO (08:54)
[2020-03-10] MEDS ORDERED: FURO40TA5 PO (08:54)
[2020-03-10] MEDS ORDERED: DILTIAZEM HCL 180 MG CAP.SR.24H PO SCH (09:00)
[2020-03-10] MEDS ORDERED: FUROSEMIDE 40 MG TABLET PO SCH (09:00)
[2020-03-10] MEDS: SACUBITRIL PO SCH (09:00)
[2020-03-10] MEDS: VALSARTAN PO SCH (09:00)
--- NOTE | 2020-03-10 10:29 | NUR ---
i spoke to dr dotson on the phone from [facility] and informed of new consult; no new orders received
[2020-03-10 11:00] VITALS: BP 159/64
[2020-03-10] MEDS: RIVAROXABAN 15 MG TABLET PO SCH (13:41)
[2020-03-10] MEDS: POTASSIUM CHLORIDE 20 MEQ ERTAB PO SCH (13:42)
[2020-03-10] MEDS: METOPROLOL TARTRATE 50 MG TAB PO SCH ×2 (13:42→21:00)
[2020-03-10 16:00] VITALS: BP 143/50
[2020-03-10] MEDS: FUROSEMIDE 10 MG/ML 4ML VIAL IVP SCH (17:01)
[2020-03-10 19:57] VITALS: BP 124/43
[2020-03-10] MEDS ORDERED: FUROSEMIDE 10 MG/ML 4ML VIAL IV SCH (21:00)
--- NOTE | 2020-03-10 21:50 | NUR ---
CONSULT DR. BA HERE TO SEE PATIENT FOR CARDIAC CONSULT. SPOKE TO PATIENT. I NOTIFIED HIM OF RHYTHM REPORTED BY TELEMONITOR EARLIER TONIGHT AFIB 45-55. HE HIMSELF CALL CALLED TELEMONITOR TECH TO ASK ADDITIONAL QUESTIONS. REVIEWED PATIENT'S MEDICATIONS AND LAST 2DECHO REPORT IN [facility] FROM FEB 25 2020. ORDERS RECEIVED TO HOLD ENTRESTO (PATIENT REPORTED THAT THIS MEDICINE HAS BEEN CAUSING HER DIZZYNESS SINCE SHE BEGAN TAKING), ALSO STOP DILTIAZEM. HOLD METOPROLOL DOSE FOR TONIGHT AND RESUME TOMORROW AM.
[2020-03-10 23:39] VITALS: BP 140/48
[2020-03-11 04:00] VITALS: BP 154/63
[2020-03-11] MEDS: FUROSEMIDE 10 MG/ML 4ML VIAL IVP SCH ×2 (06:01→17:21)
--- NOTE | 2020-03-11 06:20 | NUR ---
NOTE DR. PLEITEZ HERE TO SEE PATIENT. NOTIFIED HIM OF DR. BA (CARDIOLOGY CONSULT) COMING LAST NIGHT AND HIS ORDERS/RECOMMENDATIONS. RECEIVED ORDERS TO DISCHARGE HOME TODAY AFTER ASKING DR. BA ABOUT WHAT MEDICATIONS SHE SHOULD TAKE AT HOME. TO SEE DR. PLEITEZ NEXT THURSDAY AT HIS OFFICE.
[2020-03-11 06:25] LABS: MEAN CORPUSCULAR HEMOGLOBIN 32.2 pg (27.0-33.0); MEAN CORPUSCULAR HGB CONC 33.1 g/dL (32.0-36.0); MEAN CORPUSCULAR VOLUME 97.3 fL (79-99); PLATELET COUNT (AUTO) 280 K/uL (130-400); RED CELL DISTRIBUTION WIDTH 15.5 % (11.0-15.5); WHITE BLOOD COUNT (AUTO) 6.7 K/uL (4.8-10.8)
[2020-03-11 06:51] LABS: EOSINOPHILS % (MANUAL) 1 % (1-6); LYMPHOCYTES % (MANUAL) 15 % (22-44); MAN.DIFF COMMENT-IMPRESSION MANUAL DIFFERENTIAL; MONOCYTES % (MANUAL) 13 % (2-9); PLATELET MORPHOLOGY COMMENT ADEQUATE; SEGMENTED NEUTROPHILS % 71 % (40-70)
[2020-03-11 07:01] LABS: CREATININE 1.3 mg/dL (0.5-1.5); POTASSIUM 3.1 mmol/L (3.5-5.1); TOTAL PROTEIN, SERUM 7.1 g/dL (6.0-8.3)
[2020-03-11] MEDS: LEVOTHYROXINE 100 MCG TABLET PO SCH (07:16)
[2020-03-11 08:00] VITALS: BP 146/57
[2020-03-11] MEDS: POTASSIUM CHLORIDE 20 MEQ ERTAB PO SCH (08:00)
[2020-03-11] MEDS: RIVAROXABAN 15 MG TABLET PO SCH (08:01)
[2020-03-11] MEDS ORDERED: METOPROLOL TARTRATE 50 MG TAB PO SCH (09:00)
[2020-03-11] MEDS ORDERED: METOPROLOL TARTRATE 50 MG TAB ONE ×2 (10:32→20:44)
[2020-03-11] MEDS: METOPROLOL TARTRATE 50 MG TAB PO SCH ×2 (10:33→20:57)
[2020-03-11 11:00] VITALS: BP 155/67
--- NOTE | 2020-03-11 11:00 | NUR ---
i spoke to dr dotson on the phone and he stated no d/c today since pt's cardizem was just stopped that she needed to stay and be monitored cardiac medellin that she is going to be ok on taking only metoprolol 100mg bid. i have informed pt.
[2020-03-11] MEDS ORDERED: LIDOCAINE HCL-MPF 1% 2ML VIAL IV PRN (11:15)
[2020-03-11] MEDS ORDERED: POTASSIUM CHLORIDE 10% ELIXIR 20 MEQ/15 ML UDCUP PO PRN (11:15)
[2020-03-11] MEDS ORDERED: POTASSIUM CHLORIDE 20MEQ/100ML 100 ML IV PRN (11:15)
[2020-03-11] MEDS: POTASSIUM CHLORIDE 20 MEQ ERTAB PO PRN ×2 (15:05→17:23)
[2020-03-11 16:00] VITALS: BP 153/60
--- NOTE | 2020-03-11 17:43 | NUR ---
cm note pt lives with daughter,is independent with adls/ambulation. uses walker only as needed. daughter states has a private caregiver hires only as needed. provided [facility]. dc plan is back to home. no dc needs. Addendum: 03/11/20 at 1747 by ELIAS KNAPP Amended: Links added.
[2020-03-11 19:10] VITALS: BP 141/54
[2020-03-12 00:16] VITALS: BP 158/56
[2020-03-12 04:07] VITALS: BP 164/63
[2020-03-12] MEDS: LEVOTHYROXINE 100 MCG TABLET PO SCH (05:12)
[2020-03-12] MEDS: FUROSEMIDE 10 MG/ML 4ML VIAL IVP SCH (05:12)
[2020-03-12 06:02] LABS: CREATININE 1.3 mg/dL (0.5-1.5)
[2020-03-12] MEDS: POTASSIUM CHLORIDE 20 MEQ ERTAB PO PRN (06:53)
[2020-03-12 08:15] VITALS: BP 165/61
[2020-03-12] MEDS ORDERED: METOPROLOL SUCCINATE 50 MG TAB.SR.24H PO SCH (09:00)
[2020-03-12] MEDS ORDERED: LOSARTAN 50 MG TABLET PO SCH (09:00)
[2020-03-12] MEDS: RIVAROXABAN 15 MG TABLET PO SCH (09:26)
[2020-03-12] MEDS: POTASSIUM CHLORIDE 20 MEQ ERTAB PO SCH (09:27)
[2020-03-12 11:45] VITALS: BP 146/71
[2020-03-12 16:20] VITALS: BP 129/64
== END 2020-03-12 18:40 | disposition home or self-care (01) ==
LOC: EDH 04:42 → EDHIP 07:28 → 3AH 08:16
PROVIDERS: ADMIT Internal Medicine; ATTEND Internal Medicine
DX: I13.0 Hypertensive heart and chronic kidney disease with heart failure and stage 1 through stage 4 chronic kidney disease, or unspecified chronic kidney disease (principal); Z20.828 Contact with and (suspected) exposure to other viral communicable diseases; R06.03 Acute respiratory distress; E11.22 Type 2 diabetes mellitus with diabetic chronic kidney disease; I50.43 Acute on chronic combined systolic (congestive) and diastolic (congestive) heart failure; N18.30 Chronic kidney disease, stage 3 unspecified; I42.0 Dilated cardiomyopathy; I48.19 Other persistent atrial fibrillation; I08.3 Combined rheumatic disorders of mitral, aortic and tricuspid valves; E03.9 Hypothyroidism, unspecified; I27.20 Pulmonary hypertension, unspecified; Z79.01 Long term (current) use of anticoagulants; Z79.899 Other long term (current) drug therapy
CPT/HCPCS: 36415 ×3; 71045; 80048; 80053 ×2; 81001; 82550; 83605; 83690; 83880; 84132; 84484; 85025 ×2; 85610; 85730; 87426; 93005; 96361; 96374; 96375; 96376 ×2; 99285; G0378 ×59; J1940 ×5; J3480; J3490; U0003

== ENCOUNTER 2020-04-03 21:41 | Inpatient (IN) | payer MEDICARE ==
[~2020-04-03] VITALS: Ht 160 cm; Wt 75.8 kg
[~2020-04-03 21:41] MED LIST changes: -DILT180C51 PO; -LISI-613 PO; -METO100T14 PO; +POTA20TA82 PO
[2020-04-03 22:08] LABS: BASOPHILS % (AUTO) 0.3 % (0.0-5.0); EOSINOPHILS % (AUTO) 1.1 % (0.0-8.0); HEMATOCRIT 36.5 % (36-48); LYMPHOCYTES % (AUTO) 12.5 % (21.0-51.0); MEAN CORPUSCULAR HEMOGLOBIN 32.2 pg (27.0-33.0); MEAN CORPUSCULAR HGB CONC 32.6 g/dL (32.0-36.0); MEAN CORPUSCULAR VOLUME 98.9 fL (79-99); MONOCYTES % (AUTO) 10.8 % (3.0-13.0); NEUTROPHILS % (AUTO) 74.9 % (40.0-77.0); PLATELET COUNT (AUTO) 283 K/uL (130-400); RED BLOOD CELL COUNT(AUTO) 3.69 MIL/uL (4.00-5.50); RED CELL DISTRIBUTION WIDTH 15.3 % (11.0-15.5); WHITE BLOOD COUNT (AUTO) 10.7 K/uL (4.8-10.8)
[2020-04-03 22:18] LABS: CREATININE 1.7 mg/dL (0.5-1.5); POTASSIUM 3.9 mmol/L (3.5-5.1)
[2020-04-03 22:23] LABS: ALBUMIN 3.5 g/dL (3.5-5.0); BILIRUBIN,TOTAL 0.9 mg/dL (0.2-1.0); TOTAL PROTEIN, SERUM 7.4 g/dL (6.0-8.3)
[2020-04-03 22:37] LABS: ABG BASE EXCESS 1.2 mmol/L (-2.0-3.0); ABG HCO3 24.7 mmol/L (21.0-28.0); ABG PCO2 36 mmHg (32-45)
[2020-04-03] MEDS ORDERED: NICARDIPINE HCL 25 MG/10 ML ML IV ONE (22:57)
[2020-04-03] MEDS ORDERED: FUROSEMIDE 10 MG/ML 4ML VIAL ONE (22:57)
[2020-04-03 23:05] LABS: APPEARANCE,URINE Turbid (CLEAR); BILIRUBIN,URINE Negative (NEGATIVE); COLOR,URINE Yellow (YELLOW); GLUCOSE, URINE (UA) Negative (NEGATIVE); KETONES,URINE Negative (NEGATIVE); LEUKOCYTE ESTERASE ,URINE Large (NEGATIVE); NITRATE,URINE Negative (NEGATIVE); OCCULT BLOOD,URINE Small (NEGATIVE); PH,URINE 6.5 (5.0-8.0); PROTEIN,URINE POS 2+ mg/dL (NEGATIVE)
[2020-04-03 23:16] LABS: AMORPHOUS SEDIMENT,UR Moderate /LPF (None Seen); BACTERIA,URINE Moderate /HPF (None Seen); SQUAMOUS EPITHELIAL CELL,UR Moderate /HPF (0-2); WBC,URINE 26-50 /HPF (0-1)
[2020-04-04] MEDS ORDERED: SODIUM CHLORIDE 0.9% 50 ML IV ONE (00:23)
[2020-04-04] MEDS ORDERED: CEFTRIAXONE SODIUM 1 GM ONE (00:23)
[2020-04-04] MEDS ORDERED: AZITHROMYCIN 500MG+NS 250ML 250 ML IV ONE (00:23)
[2020-04-04] MEDS: CEFTRIAXONE SODIUM 1 GM IVP SCH (03:00)
[2020-04-04] MEDS: AZITHROMYCIN 500MG+NS 250ML 250 ML IV SCH (04:00)
[2020-04-04] MEDS: FUROSEMIDE 10 MG/ML 4ML VIAL IVP SCH ×3 (06:00→20:58)
[2020-04-04] MEDS ORDERED: FUROSEMIDE 10 MG/ML 4ML VIAL ONE ×2 (07:41→14:10)
[2020-04-04 07:56] LABS: BASOPHILS % (AUTO) 0.1 % (0.0-5.0); EOSINOPHILS % (AUTO) 1.5 % (0.0-8.0); HEMATOCRIT 32.5 % (36-48); LYMPHOCYTES % (AUTO) 13.6 % (21.0-51.0); MEAN CORPUSCULAR HEMOGLOBIN 32.1 pg (27.0-33.0); MEAN CORPUSCULAR HGB CONC 32.6 g/dL (32.0-36.0); MEAN CORPUSCULAR VOLUME 98.5 fL (79-99); MONOCYTES % (AUTO) 11.7 % (3.0-13.0); NEUTROPHILS % (AUTO) 72.8 % (40.0-77.0); PLATELET COUNT (AUTO) 218 K/uL (130-400); RED CELL DISTRIBUTION WIDTH 15.3 % (11.0-15.5); WHITE BLOOD COUNT (AUTO) 9.1 K/uL (4.8-10.8)
[2020-04-04] MEDS ORDERED: LEVOTHYROXINE 100 MCG TABLET ONE (07:58)
[2020-04-04 08:08] LABS: ALBUMIN 2.7 g/dL (3.5-5.0); CREATININE 1.4 mg/dL (0.5-1.5); POTASSIUM 3.4 mmol/L (3.5-5.1); TOTAL PROTEIN, SERUM 6.5 g/dL (6.0-8.3)
[2020-04-04 17:20] VITALS: BP 148/71
[2020-04-04 20:00] VITALS: BP 124/82
[2020-04-04] MEDS ORDERED: FURO40TA5 PO (20:47)
[2020-04-04] MEDS ORDERED: LOSA25TA41 PO (20:47)
[2020-04-04] MEDS ORDERED: METO-409 PO (20:47)
[2020-04-04] MEDS: METOPROLOL SUCCINATE 50 MG TAB.SR.24H PO SCH (20:58)
--- NOTE | 2020-04-04 21:00 | NUR ---
MEDS SHIFT ASSESSMENT DONE, PLEASE REFER TO CHART. DUE MEDS ADMINISTERED, TOLERATED WELL. KEPT RESTED AND COMFORTABLE IN BED. CALL LIGHT WITHIN REACH. WILL MONITOR PT. Addendum: 04/05/20 at 0352 by GÓMEZ ROSARIO RN RN Amended: Links added.
[2020-04-04 23:36] VITALS: BP 150/59
--- NOTE | 2020-04-05 02:00 | NUR ---
ROUNDS PT RESTING WELL, FAIRLY ASLEEP. NO DISTRESS NOTED. KEPT UNDISTURBED FOR NOW. WILL CONTINUE TO MONITOR. CALL LIGHT WITHIN REACH.
[2020-04-05] MEDS: CEFTRIAXONE SODIUM 1 GM IVP SCH (03:12)
[2020-04-05 04:00] VITALS: BP 159/68
[2020-04-05] MEDS: AZITHROMYCIN 500MG+NS 250ML 250 ML IV SCH (04:38)
[2020-04-05 04:45] LABS: BASOPHILS % (AUTO) 0.3 % (0.0-5.0); EOSINOPHILS % (AUTO) 2.4 % (0.0-8.0); HEMATOCRIT 31.7 % (36-48); LYMPHOCYTES % (AUTO) 17.4 % (21.0-51.0); MEAN CORPUSCULAR HEMOGLOBIN 32.5 pg (27.0-33.0); MEAN CORPUSCULAR HGB CONC 33.4 g/dL (32.0-36.0); MEAN CORPUSCULAR VOLUME 97.2 fL (79-99); MONOCYTES % (AUTO) 11.8 % (3.0-13.0); NEUTROPHILS % (AUTO) 67.8 % (40.0-77.0); PLATELET COUNT (AUTO) 252 K/uL (130-400); RED BLOOD CELL COUNT(AUTO) 3.26 MIL/uL (4.00-5.50); RED CELL DISTRIBUTION WIDTH 15.1 % (11.0-15.5); WHITE BLOOD COUNT (AUTO) 7.8 K/uL (4.8-10.8)
[2020-04-05 04:55] LABS: ALBUMIN 2.8 g/dL (3.5-5.0); BILIRUBIN,TOTAL 0.9 mg/dL (0.2-1.0); CREATININE 1.4 mg/dL (0.5-1.5); TOTAL PROTEIN, SERUM 6.8 g/dL (6.0-8.3)
[2020-04-05 04:58] LABS: POTASSIUM 2.7 mmol/L (3.5-5.1)
[2020-04-05] MEDS ORDERED: POTASSIUM CHLORIDE 10% ELIXIR 20 MEQ/15 ML UDCUP PO PRN (05:45)
[2020-04-05] MEDS ORDERED: POTASSIUM CHLORIDE 20 MEQ ERTAB PO PRN (05:45)
[2020-04-05] MEDS ORDERED: POTASSIUM CHLORIDE 20 MEQ ERTAB PO ONE (05:48)
[2020-04-05] MEDS ORDERED: LEVOTHYROXINE 100 MCG TABLET ONE (05:49)
[2020-04-05] MEDS: LEVOTHYROXINE 100 MCG TABLET PO SCH (05:55)
--- NOTE | 2020-04-05 06:40 | NUR ---
PIV PT COMPLAINTS OF PAINS TO PIV. DISCONTINUED PIV WITH CATHETER INTACT. RE-INSERTED PIV TO RT HAND G20 THEN CONTINUED IV ANTIBIOTICS INFUSION. FOR MORE CARE AND MANAGEMENT.
[2020-04-05 08:32] VITALS: BP 146/80
[2020-04-05] MEDS: METOPROLOL SUCCINATE 50 MG TAB.SR.24H PO SCH ×2 (10:34→20:18)
[2020-04-05] MEDS: POTASSIUM CHLORIDE 20 MEQ ERTAB PO SCH ×2 (10:35→18:18)
[2020-04-05] MEDS: FUROSEMIDE 10 MG/ML 4ML VIAL IVP SCH (10:35)
[2020-04-05] MEDS: RIVAROXABAN 15 MG TABLET PO SCH (10:36)
[2020-04-05] MEDS: LOSARTAN 50 MG TABLET PO SCH ×2 (10:36→20:17)
[2020-04-05] MEDS: POTASSIUM CHLORIDE 20MEQ/100ML 100 ML IV PRN ×2 (10:52→22:23)
[2020-04-05] MEDS: LIDOCAINE HCL-MPF 1% 2ML VIAL IV PRN ×2 (10:53→22:23)
[2020-04-05 11:51] VITALS: BP 141/64
[2020-04-05] MEDS ORDERED: POTASSIUM CHLORIDE 20MEQ/100ML 100 ML IV PRN (13:30)
--- NOTE | 2020-04-05 15:33 | NUR ---
RIKA NOTE/IA MET WITH PATIENT IN ROOM. PER PATIENT, LIVES WITH DAUGHTER, IS INDEPENDENT WITH ADLS, NO USE OF HOME HEALTH OR PROVIDERS, HAS USE OF WALKER AND FEELS SAFE TO RETURN HOME ONCE DISCHARGED. Addendum: 04/05/20 at 1534 by TONY CHESTER RN CM Amended: Links added.
[2020-04-05 16:15] VITALS: BP 137/73
[2020-04-05 19:35] VITALS: BP 127/73
[2020-04-05] MEDS: FUROSEMIDE 10 MG/ML 4ML VIAL IV SCH (20:17)
--- NOTE | 2020-04-05 20:20 | NUR ---
MEDS SHIFT ASSESSMENT DONE, PLEASE REFER TO CHART. DUE MEDS ADMINISTERED, TOLERATED WELL. KEPT COMFORTABLE IN BED. CALL LIGHT WITHIN REACH. BED ALARM ACTIVATED. WILL MONITOR CLOSELY. Addendum: 04/06/20 at 0547 by GÓMEZ ROSARIO RN RN Amended: Links added.
[2020-04-05] MEDS ORDERED: POTASSIUM CHLORIDE 10MEQ/100ML 10 MEQ/100 ML ML IV SCH (21:00)
--- NOTE | 2020-04-05 22:44 | NUR ---
PAGED PT'S HR IS FLUCTUATING FROM 120-150 BPM AT THIS TIME. PT IS AGITATED AND IS CONFUSED. PAGED DR PLEITEZ VIA ANSWERING SERVICE. AWAITING CALL BACK.
[2020-04-06] VITALS (7 sets, daily range): BP systolic 118–153; BP diastolic 66–83
--- NOTE | 2020-04-06 00:13 | NUR ---
PAGED PT'S HR STILL TACHY AT 120-130'S NON-SUSTAINING. PAGED DR SHANELLE MD [facility] VIA ANSWERING SERVICE. ANSWERED AND REFERRED PT'S CONDITION. NEW MED ORDER RECEIVED, PLEASE REFER TO CPOE. WILL MEDICATE PT.
[2020-04-06] MEDS ORDERED: METOPROLOL TARTRATE 1 MG/ML 5ML VIAL IV ONE (00:16)
--- NOTE | 2020-04-06 02:00 | NUR ---
ROUNDS PT IS STILL AWAKE, UNABLE TO SLEEP.A ND IS CONFUSED. TRIED TO RE-ORIENT PT AND KEPT CALM. WILL KEPT CONTINUE TO KEEP ON CLOSE WATCH.
[2020-04-06] MEDS: CEFTRIAXONE SODIUM 1 GM IVP SCH (03:07)
[2020-04-06] MEDS: AZITHROMYCIN 500MG+NS 250ML 250 ML IV SCH (03:07)
[2020-04-06] MEDS ORDERED: ACET-2247 PO (03:28)
[2020-04-06] MEDS ORDERED: ACETAMINOPHEN 325 MG TAB ONE (03:30)
[2020-04-06] MEDS ORDERED: ACETAMINOPHEN 325 MG TAB PO PRN (03:30)
--- NOTE | 2020-04-06 04:45 | NUR ---
AFIB PT IS SUSTAINING WS=579'S AFIB EVEN AT REST. PAGED DR TIMMONS VIA ANSWERING SERVICE. AWAITING CALL BACK.
--- NOTE | 2020-04-06 05:00 | NUR ---
CALL NO CALL BACK FROM DR TIMMONS. CALLED INSPECTOR CLIP ON [employer] AND PHONE NUMBER SECURED. CALLED MD VIA CP AND WAS ABLE TO REFER PT'S CONDITION. NEW ORDERS GIVEN, PLEASE REFER TO CPOE. ROOM AVAILABLE FOR TRANSFER. REPORT GIVEN TO JOSE HERNANDEZ. PT TRANSFERRED TO ROOM 424 FOR MORE CARE AND MANAGEMENT.
[2020-04-06] MEDS ORDERED: DILTIAZEM HCL 125 MG/25 ML 125 MG in SODIUM CHLORIDE 0.9% 100 ML IV SCH (05:15)
--- NOTE | 2020-04-06 05:30 | NUR ---
PT ARRIVED VIA STRETCHER WITH 3RD FLOOR NURSE, TRANSFERRED FROM ROOM 315 TO 424 D/T SINUS TACHY 140s TO 170s. CARDIZEM DRIP HAS BEEN ORDERED AND TO ADMIT TO PCCU. PT AAOx3, BUT CONFUSED AT TIMES, PT PULLING ON HER TELE MONITOR AND ELECTRODES. KERLIX PLACED ON HER IV SITE. BED LOCKED, RAILS UP x2, CALL LIGHT WITHIN REACH. LOUISE IN PLACE, SECURED TO LEG. ASYMPTOMATIC. DENIES CHEST PAIN OR DISCOMFORT.
[2020-04-06] MEDS ORDERED: DILTIAZEM HCL 5 MG/ML 10 ML VIAL IV ONE ×2 (05:46→05:51)
--- NOTE | 2020-04-06 06:15 | NUR ---
CARDIZEM DRIP STARTED AT 5ML/HR. HEART RATE AT 140-150.
--- NOTE | 2020-04-06 06:45 | NUR ---
CARDIZEM AT 10ML/HR HEART RATE 110-120
[2020-04-06] MEDS: METOPROLOL SUCCINATE 50 MG TAB.SR.24H PO SCH ×2 (10:21→22:12)
[2020-04-06] MEDS: RIVAROXABAN 15 MG TABLET PO SCH (10:21)
[2020-04-06] MEDS: LOSARTAN 50 MG TABLET PO SCH ×2 (10:22→22:13)
[2020-04-06] MEDS: FUROSEMIDE 10 MG/ML 4ML VIAL IV SCH ×2 (10:22→22:12)
[2020-04-06] MEDS: LEVOTHYROXINE 100 MCG TABLET PO SCH (10:22)
--- NOTE | 2020-04-06 17:00 | NUR ---
CARDIZEM DRIP WEANED TO OFF; TELEMETRY AFIB 70-85. DENIES CHEST PAIN OR DISCOMFORT, ON SOB OR LABORED RESPIRATIONS
[2020-04-06] MEDS ORDERED: DIGOXIN 250 MCG/ML 2ML AMP IV SCH (20:35)
[2020-04-06] MEDS ORDERED: DIGOXIN 250 MCG/ML 2ML AMP ONE (23:01)
[2020-04-07] MEDS ORDERED: SODIUM CHLORIDE 0.9% 250 ML IV ONE (02:56)
[2020-04-07] MEDS: AZITHROMYCIN 500MG+NS 250ML 250 ML IV SCH (03:09)
[2020-04-07] MEDS: CEFTRIAXONE SODIUM 1 GM IVP SCH (03:09)
[2020-04-07 03:45] VITALS: BP 170/106
[2020-04-07 05:31] VITALS: BP 157/87
[2020-04-07 05:52] LABS: CREATININE 1.7 mg/dL (0.5-1.5); POTASSIUM 3.7 mmol/L (3.5-5.1)
[2020-04-07] MEDS: LEVOTHYROXINE 100 MCG TABLET PO SCH (06:19)
[2020-04-07 08:02] VITALS: BP 168/90
[2020-04-07] MEDS: POTASSIUM CHLORIDE 20 MEQ ERTAB PO SCH (10:03)
[2020-04-07] MEDS: LOSARTAN 50 MG TABLET PO SCH ×2 (10:03→21:30)
[2020-04-07] MEDS: FUROSEMIDE 10 MG/ML 4ML VIAL IV SCH ×2 (10:04→21:30)
[2020-04-07] MEDS: RIVAROXABAN 15 MG TABLET PO SCH (10:04)
[2020-04-07] MEDS: METOPROLOL SUCCINATE 50 MG TAB.SR.24H PO SCH ×2 (10:11→21:30)
[2020-04-07 11:33] VITALS: BP 142/74
[2020-04-07 16:00] VITALS: BP 156/64
[2020-04-07 20:00] VITALS: BP 118/53
[2020-04-08] VITALS: BP 123/65
[2020-04-08 04:00] VITALS: BP 142/57
[2020-04-08] MEDS: CEFTRIAXONE SODIUM 1 GM IVP SCH (04:05)
[2020-04-08] MEDS: AZITHROMYCIN 500MG+NS 250ML 250 ML IV SCH (04:05)
[2020-04-08] MEDS: LEVOTHYROXINE 100 MCG TABLET PO SCH (06:05)
--- NOTE | 2020-04-08 07:25 | NUR ---
PATIENT UPDATE PT SLEEPING BETTER, LESS ANXIOUS. RUNNING AFIB BET 70'S TO 80'S AT A MORE CONTROLLED RATE. BLOOD PRESSURE MORE STABLE. NO COMPLAINTS OF PAIN, REPOSITIONED IN BED Q 2 HRS. ADEQUATE OUTPUT FROM THE LOUISE CATH , PT ON LASIX IV. CONTINUES ON THE ROCEPHIN AND AZITHROMYCIN FOR IV ANTIBIOTICS.
[2020-04-08 07:52] VITALS: BP 155/73
[2020-04-08] MEDS: FUROSEMIDE 10 MG/ML 4ML VIAL IV SCH ×2 (08:51→21:08)
[2020-04-08] MEDS: RIVAROXABAN 15 MG TABLET PO SCH (08:51)
[2020-04-08] MEDS: LOSARTAN 50 MG TABLET PO SCH ×2 (08:52→21:18)
[2020-04-08] MEDS: METOPROLOL SUCCINATE 50 MG TAB.SR.24H PO SCH ×2 (08:52→21:18)
[2020-04-08] MEDS: POTASSIUM CHLORIDE 20 MEQ ERTAB PO SCH (08:52)
[2020-04-08 11:10] VITALS: BP 158/78
[2020-04-08 15:56] VITALS: BP 152/72
[2020-04-08 20:50] VITALS: BP 155/80
[2020-04-09 00:36] VITALS: BP 150/64
[2020-04-09] MEDS: CEFTRIAXONE SODIUM 1 GM IVP SCH (02:37)
[2020-04-09] MEDS: AZITHROMYCIN 500MG+NS 250ML 250 ML IV SCH (04:01)
[2020-04-09 04:17] VITALS: BP 149/78
[2020-04-09 05:39] LABS: CREATININE 1.1 mg/dL (0.5-1.5); POTASSIUM 3.1 mmol/L (3.5-5.1)
[2020-04-09] MEDS: LEVOTHYROXINE 100 MCG TABLET PO SCH (06:16)
--- NOTE | 2020-04-09 06:25 | NUR ---
LOUISE REMOVED LOUISE CATHETER 16FR. PT TOLERATED WELL. LOUISE CONTAINED 300 ML OF YELLOW URINE. PT HAS BRIEF ON.
[2020-04-09 07:54] VITALS: BP 147/68
[2020-04-09] MEDS: POTASSIUM CHLORIDE 20 MEQ ERTAB PO SCH (08:12)
[2020-04-09] MEDS: METOPROLOL SUCCINATE 50 MG TAB.SR.24H PO SCH (08:12)
[2020-04-09] MEDS: LOSARTAN 50 MG TABLET PO SCH (08:12)
[2020-04-09] MEDS: RIVAROXABAN 15 MG TABLET PO SCH (08:12)
[2020-04-09] MEDS ORDERED: FUROSEMIDE 40 MG TABLET ONE (10:31)
[2020-04-09 11:48] VITALS: BP 143/63
[2020-04-09 16:00] VITALS: BP 154/70
[2020-04-09] MEDS ORDERED: FUROSEMIDE 40 MG TABLET PO SCH (17:00)
== END 2020-04-09 17:50 | disposition home or self-care (01) | DRG 291 ==
LOC: EDH 21:41 → EDHIP 04-04 01:17 → 3CH 04-04 17:48 → 4DH 04-06 05:29
PROVIDERS: ADMIT Internal Medicine; ATTEND Internal Medicine
DX: I13.0 Hypertensive heart and chronic kidney disease with heart failure and stage 1 through stage 4 chronic kidney disease, or unspecified chronic kidney disease (principal); I50.23 Acute on chronic systolic (congestive) heart failure; J96.90 Respiratory failure, unspecified, unspecified whether with hypoxia or hypercapnia; J18.9 Pneumonia, unspecified organism; I48.19 Other persistent atrial fibrillation; N39.0 Urinary tract infection, site not specified; J44.0 Chronic obstructive pulmonary disease with (acute) lower respiratory infection; I87.2 Venous insufficiency (chronic) (peripheral); G51.0 Bell's palsy; Z20.828 Contact with and (suspected) exposure to other viral communicable diseases; E87.6 Hypokalemia; E03.9 Hypothyroidism, unspecified; N18.30 Chronic kidney disease, stage 3 unspecified; I08.3 Combined rheumatic disorders of mitral, aortic and tricuspid valves; F03.90 Unspecified dementia, unspecified severity, without behavioral disturbance, psychotic disturbance, mood disturbance, and anxiety; E78.5 Hyperlipidemia, unspecified; E11.22 Type 2 diabetes mellitus with diabetic chronic kidney disease; I25.10 Atherosclerotic heart disease of native coronary artery without angina pectoris; Z79.01 Long term (current) use of anticoagulants; Z79.899 Other long term (current) drug therapy
CPT/HCPCS: 36415; 36600; 71045; 80048; 80053; 81001; 82550; 82803; 82948; 83880; 84132; 84484; 85025; 87040; 87077; 87088; 87186; 87426; 93005; G0378; J0456; J0696; J1160; J1940; J3480; J3490; J7050; U0003

== ENCOUNTER 2020-04-14 17:46 | Inpatient (IN) | payer MEDICARE ==
[~2020-04-14] VITALS: Ht 170.2 cm; Wt 75.9 kg
[~2020-04-14 17:46] MED LIST changes: +ACET-2247 PO; +FURO40TA5 PO; +LOSA25TA41 PO; +METO-409 PO
[2020-04-14 18:08] LABS: ABG BASE EXCESS -5.9 mmol/L (-2.0-3.0); ABG HCO3 18.3 mmol/L (21.0-28.0); ABG OXYGEN SATURATION 91.7 % (95.0-99.0); ABG PCO2 33 mmHg (32-45)
[2020-04-14 18:11] LABS: BASOPHILS % (AUTO) 0.2 % (0.0-5.0); HEMATOCRIT 39.3 % (36-48); LYMPHOCYTES % (AUTO) 11.2 % (21.0-51.0); MEAN CORPUSCULAR HEMOGLOBIN 32.2 pg (27.0-33.0); MEAN CORPUSCULAR HGB CONC 32.1 g/dL (32.0-36.0); MEAN CORPUSCULAR VOLUME 100.5 fL (79-99); MONOCYTES % (AUTO) 10.1 % (3.0-13.0); NEUTROPHILS % (AUTO) 77.7 % (40.0-77.0); NUCLEATED RED BLOOD CELLS 0.4 % (0.0-0.19); PLATELET COUNT (AUTO) 355 K/uL (130-400); RED BLOOD CELL COUNT(AUTO) 3.91 MIL/uL (4.00-5.50); RED CELL DISTRIBUTION WIDTH 16.5 % (11.0-15.5)
[2020-04-14 18:13] LABS: CREATININE 2.7 mg/dL (0.5-1.5); POTASSIUM 5.2 mmol/L (3.5-5.1)
[2020-04-14 18:15] LABS: PROTHROMBIN TIME 33.6 SEC (9.6-11.6)
[2020-04-14 18:18] LABS: ALBUMIN 3.5 g/dL (3.5-5.0); BILIRUBIN,TOTAL 1.4 mg/dL (0.2-1.0); TOTAL PROTEIN, SERUM 7.9 g/dL (6.0-8.3)
[2020-04-14 18:31] LABS: INR 3.52 (0.85-1.15)
[2020-04-14] MEDS: CEFTRIAXONE SODIUM 1 GM IVP SCH (20:00)
[2020-04-14] MEDS: METOPROLOL SUCCINATE 50 MG TAB.SR.24H PO SCH (21:00)
[2020-04-14] MEDS ORDERED: CEFTRIAXONE SODIUM 1 GM ONE (21:32)
[2020-04-14 22:40] VITALS: BP 138/72
[2020-04-14 23:00] VITALS: BP 141/73
[2020-04-14 23:15] VITALS: BP 159/68
[2020-04-14] MEDS: FUROSEMIDE 10 MG/ML 4ML VIAL IV SCH (23:22)
[2020-04-14] MEDS: AZITHROMYCIN 500MG+NS 250ML 250 ML IV SCH (23:22)
[2020-04-14 23:30] VITALS: BP 145/69
[2020-04-14 23:45] VITALS: BP 139/59
[2020-04-15] VITALS (24 sets, daily range): BP systolic 104–145; BP diastolic 42–98
[2020-04-15 07:53] LABS: ABG BASE EXCESS 0.5 mmol/L (-2.0-3.0); ABG HCO3 26.3 mmol/L (21.0-28.0); ABG OXYGEN SATURATION 99.2 % (95.0-99.0); ABG PCO2 46 mmHg (32-45)
[2020-04-15 08:00] LABS: HEMATOCRIT 32.4 % (36-48); MEAN CORPUSCULAR HEMOGLOBIN 31.8 pg (27.0-33.0); MEAN CORPUSCULAR HGB CONC 32.4 g/dL (32.0-36.0); MEAN CORPUSCULAR VOLUME 98.2 fL (79-99); NUCLEATED RED BLOOD CELLS 0.2 % (0.0-0.19); RED BLOOD CELL COUNT(AUTO) 3.3 MIL/uL (4.00-5.50); WHITE BLOOD COUNT (AUTO) 10.1 K/uL (4.8-10.8)
[2020-04-15 08:08] LABS: CREATININE 2.3 mg/dL (0.5-1.5); MAGNESIUM 2.4 mg/dL (1.80-2.40); POTASSIUM 4.1 mmol/L (3.5-5.1)
[2020-04-15] MEDS: METOPROLOL SUCCINATE 50 MG TAB.SR.24H PO SCH ×2 (09:00→20:35)
[2020-04-15] MEDS: FUROSEMIDE 10 MG/ML 4ML VIAL IV SCH ×2 (09:15→20:35)
[2020-04-15] MEDS: RIVAROXABAN 15 MG TABLET PO SCH (09:21)
[2020-04-15] MEDS ORDERED: DEXTROSE 50%-WATER 50 ML DISP.SYRIN IV PRN (12:45)
[2020-04-15] MEDS ORDERED: GLUCAGON 1MG KIT 1 MG ML IM PRN (12:45)
[2020-04-15] MEDS ORDERED: MAGNESIUM 2GM PREMIX 50ML 50 ML IV PRN (12:45)
[2020-04-15] MEDS: INSULIN HUMULIN R 100 UNIT/ML 3ML SQ SCH ×2 (16:12→21:00)
[2020-04-15] MEDS: CEFTRIAXONE SODIUM 1 GM IVP SCH (20:34)
[2020-04-15] MEDS: AZITHROMYCIN 500MG+NS 250ML 250 ML IV SCH (20:35)
[2020-04-16] VITALS (11 sets, daily range): BP systolic 93–156; BP diastolic 46–75
[2020-04-16 05:24] LABS: BASOPHILS % (AUTO) 0.2 % (0.0-5.0); EOSINOPHILS % (AUTO) 4.3 % (0.0-8.0); HEMATOCRIT 34.3 % (36-48); MEAN CORPUSCULAR HEMOGLOBIN 31.8 pg (27.0-33.0); MEAN CORPUSCULAR HGB CONC 30.9 g/dL (32.0-36.0); MONOCYTES % (AUTO) 13.5 % (3.0-13.0); NEUTROPHILS % (AUTO) 71.5 % (40.0-77.0); PLATELET COUNT (AUTO) 317 K/uL (130-400); RED BLOOD CELL COUNT(AUTO) 3.33 MIL/uL (4.00-5.50); RED CELL DISTRIBUTION WIDTH 16.4 % (11.0-15.5); WHITE BLOOD COUNT (AUTO) 9.3 K/uL (4.8-10.8)
[2020-04-16 05:59] LABS: ALBUMIN 2.6 g/dL (3.5-5.0); BILIRUBIN,TOTAL 0.5 mg/dL (0.2-1.0); CREATININE 2.2 mg/dL (0.5-1.5); MAGNESIUM 2.3 mg/dL (1.80-2.40); PHOSPHORUS 4.9 mg/dL (2.5-4.9); POTASSIUM 3.3 mmol/L (3.5-5.1); TOTAL PROTEIN, SERUM 6.3 g/dL (6.0-8.3)
[2020-04-16 06:08] LABS: B-TYPE NATRIURETIC PEPTIDE 799 pg/mL (0-100)
[2020-04-16] MEDS: INSULIN HUMULIN R 100 UNIT/ML 3ML SQ SCH ×4 (06:12→20:49)
[2020-04-16] MEDS: LEVOTHYROXINE 100 MCG TABLET PO SCH (06:31)
[2020-04-16] MEDS: RIVAROXABAN 15 MG TABLET PO SCH (09:27)
[2020-04-16] MEDS: FUROSEMIDE 10 MG/ML 4ML VIAL IV SCH ×2 (09:27→20:31)
[2020-04-16] MEDS: METOPROLOL SUCCINATE 50 MG TAB.SR.24H PO SCH ×2 (09:27→20:30)
[2020-04-16] MEDS: POTASSIUM CHLORIDE 20 MEQ ERTAB PO SCH (09:29)
[2020-04-16] MEDS: CEFTRIAXONE SODIUM 1 GM IVP SCH (20:31)
[2020-04-16] MEDS: AZITHROMYCIN 500MG+NS 250ML 250 ML IV SCH (20:31)
[2020-04-17 04:24] VITALS: BP 167/70
[2020-04-17 04:58] LABS: MEAN CORPUSCULAR HGB CONC 32.6 g/dL (32.0-36.0); RED BLOOD CELL COUNT(AUTO) 3.47 MIL/uL (4.00-5.50); RED CELL DISTRIBUTION WIDTH 16.3 % (11.0-15.5); WHITE BLOOD COUNT (AUTO) 10.4 K/uL (4.8-10.8)
[2020-04-17 05:15] LABS: CREATININE 1.4 mg/dL (0.5-1.5)
[2020-04-17] MEDS: INSULIN HUMULIN R 100 UNIT/ML 3ML SQ SCH ×3 (05:16→16:30)
[2020-04-17 05:21] LABS: INR 1.34 (0.85-1.15)
[2020-04-17 05:22] LABS: PARTIAL THROMBOPLASTIN TIME 31.1 SEC (26.3-35.5)
[2020-04-17 05:54] LABS: POTASSIUM 2.8 mmol/L (3.5-5.1)
[2020-04-17] MEDS: LEVOTHYROXINE 100 MCG TABLET PO SCH (06:05)
[2020-04-17] MEDS ORDERED: POTASSIUM CHLORIDE 10MEQ/100ML 100 ML IV PRN (06:30)
[2020-04-17] MEDS ORDERED: LIDOCAINE HCL-MPF 1% 2ML VIAL IV PRN (06:30)
[2020-04-17] MEDS ORDERED: POTASSIUM CHLORIDE 10% ELIXIR 20 MEQ/15 ML UDCUP PO PRN (06:30)
[2020-04-17] MEDS ORDERED: POTASSIUM CHLORIDE 20 MEQ ERTAB PO PRN (06:30)
[2020-04-17 08:00] VITALS: BP 163/70
[2020-04-17] MEDS: FUROSEMIDE 10 MG/ML 4ML VIAL IV SCH (08:30)
[2020-04-17] MEDS: METOPROLOL SUCCINATE 50 MG TAB.SR.24H PO SCH (08:54)
[2020-04-17] MEDS: POTASSIUM CHLORIDE 20 MEQ ERTAB PO SCH (08:54)
[2020-04-17 12:00] VITALS: BP 145/64
[2020-04-17] MEDS ORDERED: POLYETHYLENE GLYCOL 3350 17 GM POWD.PACK PO SCH (13:15)
[2020-04-17 16:00] VITALS: BP 149/63
[2020-04-17] MEDS ORDERED: MAGNESIUM HYDROXIDE 30 ML/UDCUP PO PRN (21:45)
== END 2020-04-17 19:00 | disposition home or self-care (01) | DRG 291 ==
LOC: EDH 17:46 → EDHIP 18:58 → 2CH 23:20 → 4BH 04-15 18:26
PROVIDERS: ADMIT Internal Medicine; ATTEND Internal Medicine
PROC: 5A09357 Assistance with Respiratory Ventilation, Less than 24 Consecutive Hours, Continuous Positive Airway Pressure (ICD-10-PCS; principal; 2020-04-14)
PROC: 5A09357 Assistance with Respiratory Ventilation, Less than 24 Consecutive Hours, Continuous Positive Airway Pressure (ICD-10-PCS; 2020-04-15)
PROC: 5A09357 Assistance with Respiratory Ventilation, Less than 24 Consecutive Hours, Continuous Positive Airway Pressure (ICD-10-PCS; 2020-04-16)
DX: I13.0 Hypertensive heart and chronic kidney disease with heart failure and stage 1 through stage 4 chronic kidney disease, or unspecified chronic kidney disease (principal); J96.91 Respiratory failure, unspecified with hypoxia; I50.23 Acute on chronic systolic (congestive) heart failure; N17.9 Acute kidney failure, unspecified; I48.20 Chronic atrial fibrillation, unspecified; N18.4 Chronic kidney disease, stage 4 (severe); I42.0 Dilated cardiomyopathy; E03.9 Hypothyroidism, unspecified; D72.829 Elevated white blood cell count, unspecified; R74.01 Elevation of levels of liver transaminase levels; R79.1 Abnormal coagulation profile; K59.00 Constipation, unspecified; I08.3 Combined rheumatic disorders of mitral, aortic and tricuspid valves; Z20.828 Contact with and (suspected) exposure to other viral communicable diseases; Z79.01 Long term (current) use of anticoagulants; Z79.899 Other long term (current) drug therapy
CPT/HCPCS: 36415; 36600; 70450; 71045; 80048; 80053; 82550; 82803; 82948; 83735; 83880; 84100; 84132; 84484; 85025; 85027; 85610; 85730; 87426; 93005; 94660; 97039; G0378; J0456; J0696; J1940; J3490; U0003